=== PATIENT | male | born 1950 | race Caucasian/White ===

== ENCOUNTER 2024-02-15 09:56 | Day surgery (SDC) | payer MEDICARE, SELFPAY ==
[2024-02-08 12:47] VITALS: BMI 33.2
[2024-02-15] VITALS (23 sets, daily range): BP systolic 109–177; BP diastolic 57–128; BMI 32.1
[2024-02-15] MEDS: NSS 254 ML IV (10:48)
--- NOTE | 2024-02-15 11:03 | ITS.CL.CATH ---
[facility] - Catheterization
Cardiac Catheterization
Procedure Report:
CARDIAC CATHETERIZATION REPORT
Date of Procedure: 02/15/2024
Referring: Andrews Mckeon MD
Indication: TORIBIO, leg edema, MR
�
HEMODYNAMIC DATA
AO: 158/80
LV: 158/26
PCWP: 27
PA: 63/28
RV: 63/22
RA: 20
Oximetry: Ao 94%, PA 68%, cardiac output 5.5, cardiac index 2.9
�
LEFT VENTRICULOGRAPHY: Normal left ventricular wall motion with EF 53%. By angiography the degree of mitral regurgitation appears to be trace
ASCENDING AORTOGRAPHY: Normal aortic root size with normal ascending aorta. There is no aortic regurgitation
�
CORONARY ANGIOGRAPHY
Dominance: Right
Left Main: Normal
LAD: Normal
Circumflex: Normal
RCA: Normal dominant vessel
�
Closure Device: None-the procedure was performed via the right radial artery. The Jefferson's test was normal prior to the procedure.
�
Radiation dose (mGy): 247
DAP (cm2.Gy): 23.7
Fluoroscopy time: 3.3 minutes
�
CONCLUSIONS:
1. Elevated filling pressures with moderate pulmonary hypertension
2. Borderline left ventricular cavity size with EF 53%
3. No sign of aortic insufficiency or aortic dilation
4. Normal coronary arteries
5. Findings most consistent with diagnosis of diastolic dysfunction/volume overload
�
RECOMMENDATIONS: We will begin furosemide 20 mg daily and increase his KCl from 30mEq daily to 40 mEq daily. BMP will be ordered for 1 week. I have stressed the importance of daily weights and dietary sodium restriction
�
Copy to: Andrews Mckeon MD, Kris Curtis MD
�
Bird Alba MD, [facility], [facility]
== END 2024-02-15 17:00 | disposition home or self-care (01) ==
LOC: CATH 09:56
PROVIDERS: ATTENDING PHYSICIAN Internal Medicine Cardiovascular Disease; FAMILY PHYSICIAN Internal Medicine
DX: I48.0 Paroxysmal atrial fibrillation (principal); I34.0 Nonrheumatic mitral (valve) insufficiency; I10 Essential (primary) hypertension; I27.20 Pulmonary hypertension, unspecified; E78.5 Hyperlipidemia, unspecified; G47.33 Obstructive sleep apnea (adult) (pediatric); K21.9 Gastro-esophageal reflux disease without esophagitis; Z79.01 Long term (current) use of anticoagulants; Z79.82 Long term (current) use of aspirin
CPT/HCPCS: C1894; 93460; 93567; Q9967